=== PATIENT | male | born 1965 | race Caucasian/White ===

== ENCOUNTER 2017-05-13 15:17 | Emergency (ER) | payer OTHER ==
[~2017-05-13] VITALS: Ht 175.3 cm; Wt 68.0 kg
--- NOTE | ~2017-05-13 | EKG ---
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
[2017-05-13 15:19] VITALS: BP 176/83
[2017-05-13 15:48] LABS: URINE BILIRUBIN NEGATIVE (Negative); URINE BLOOD NEGATIVE (Negative); URINE COLOR YELLOW; URINE GLUCOSE-RANDOM* NEGATIVE (Negative); URINE KETONES NEGATIVE (Negative); URINE LEUKOCYTES-REFLEX NEGATIVE (Negative); URINE PROTEIN (DIPSTICK) NEGATIVE (Negative); URINE UROBILINOGEN 0.2 E.U./dl (0.2-1.0)
[2017-05-13 16:01] LABS: ABSOLUTE NEUTROPHILS 2.9 thou/uL (1.4-8.2); EOSINOPHILS 0.9 % (0.0-3.0); HEMATOCRIT 44.6 % (42.0-52.0); HEMOGLOBIN 15.3 gm/dL (14.0-18.0); LYMPHOCYTES 37.2 % (24.0-44.0); MCH 31.7 pg (26.0-34.0); MCHC 34.3 g/dL (28.0-37.0); MCV 92.7 fL (80.0-100.0); PLATELET COUNT 234 thou/uL (150-400); POLYS 51.9 % (36.0-66.0); RBC 4.82 mil/uL (4.50-6.00); RDW 13.6 % (10.5-14.5); WBC 5.6 thou/uL (4.0-11.0)
[2017-05-13 16:02] LABS: MANUAL DIFF NO
[2017-05-13 16:08] LABS: CALCIUM 9.7 mg/dL (8.5-10.1); CREATININE 0.9 mg/dL (0.7-1.3)
[2017-05-13 16:14] LABS: ALBUMIN 4.1 g/dL (3.4-5.0); TOTAL BILIRUBIN 0.7 mg/dL (<0.1-1.0); TOTAL PROTEIN 7.5 g/dL (6.4-8.2)
[2017-05-13] MEDS ORDERED: PHENERGAN 25 MG25 M1 PO (16:56)
[2017-05-13] MEDS ORDERED: ZANTAC 150MG T150 MG PO (16:56)
[2017-05-13] MEDS ORDERED: PRILOSEC 20 MG20 MG PO (16:56)
== END 2017-05-13 17:20 | disposition home or self-care (01) ==
LOC: ER 15:17
PROVIDERS: Physician Assistant
DX: R10.33 Periumbilical pain (principal); R10.13 Epigastric pain; F17.210 Nicotine dependence, cigarettes, uncomplicated; F10.99 Alcohol use, unspecified with unspecified alcohol-induced disorder

== ENCOUNTER 2019-02-04 19:41 | Emergency (ER) | payer OTHER ==
[~2019-02-04] VITALS: Ht 177.8 cm; Wt 70.3 kg
[~2019-02-04 19:41] MED LIST: PHENERGAN 25 MG25 M1 PO; PRILOSEC 20 MG20 MG PO; ZANTAC 150MG T150 MG PO
[2019-02-04 19:59] LABS: URINE BILIRUBIN NEGATIVE (Negative); URINE BLOOD NEGATIVE (Negative); URINE CLARITY CLEAR; URINE COLOR YELLOW; URINE GLUCOSE-RANDOM* NEGATIVE (Negative); URINE KETONES NEGATIVE (Negative); URINE LEUKOCYTES NEGATIVE (Negative); URINE NITRITE NEGATIVE (Negative); URINE PROTEIN (DIPSTICK) NEGATIVE (Negative); URINE UROBILINOGEN 0.2 E.U./dl (0.2-1.0)
[2019-02-04 20:11] LABS: BASOPHILS 0.9 % (0.0-2.0); EOSINOPHILS 1.2 % (0.0-3.0); HEMATOCRIT 42.5 % (42.0-52.0); HEMOGLOBIN 14.8 gm/dL (14.0-18.0); LYMPHOCYTES 33.2 % (24.0-44.0); MCH 31.2 pg (26.0-34.0); MCHC 34.9 g/dL (28.0-37.0); MCV 89.5 fL (80.0-100.0); MONOCYTES 7.6 % (1.0-8.0); PLATELET COUNT 242 thou/uL (150-400); POLYS 57.1 % (36.0-66.0); RBC 4.75 mil/uL (4.50-6.00); RDW 13.4 % (10.5-14.5); WBC 5.3 thou/uL (4.0-11.0)
[2019-02-04 20:20] LABS: CALCIUM 9.4 mg/dL (8.5-10.1); CREATININE 0.8 mg/dL (0.7-1.3)
[2019-02-04 20:27] LABS: TOTAL BILIRUBIN 0.6 mg/dL (<0.1-1.0); TOTAL PROTEIN 7.5 g/dL (6.4-8.2)
[2019-02-04] MEDS ORDERED: PRILOSEC 20 MG20 MG PO (21:16)
[2019-02-04 21:19] VITALS: BP 145/90
--- NOTE | 2019-02-07 08:31 | EKG ---
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1965 Requested By: Jose Patricia Order Number: [id number] MD: Tr Ravi Measurements Intervals [place] Rate: 64 P: 56 WI: 203 QRS: -59 QRSD: 94 T: 60 QT: 389 QTc: 402 Interpretive Statements Sinus rhythm Borderline prolonged [place] interval Probable left atrial enlargement Left axis deviation Abnormal R-wave progression, early transition Compared to ECG 05/13/2017 16:42:37 Left-axis deviation now present Sinus bradycardia no longer present Electronically Signed On 02-07-2019 8:31:15 CDT by Tr Ravi [email or web address] ��������������������������������������������� <ELECTRONICALLY SIGNED> ���������������������������������������� By: Tr Ravi MD ��������������������������������������������� 02/07/19 0831 34 34 Tr Ravi MD /EPI
== END 2019-02-04 21:26 | disposition home or self-care (01) ==
LOC: ER 19:41
PROVIDERS: Emergency Medicine
DX: R10.12 Left upper quadrant pain (principal); R07.89 Other chest pain; F17.210 Nicotine dependence, cigarettes, uncomplicated

== ENCOUNTER 2019-11-16 18:55 | Emergency (ER) | payer OTHER ==
[~2019-11-16] VITALS: Ht 175.3 cm; Wt 83.9 kg
[2019-11-16] MEDS ORDERED: NOHOMEMEDICATIONS (19:01)
[2019-11-16 19:52] LABS: HEMATOCRIT 42.6 % (42.0-52.0); HEMOGLOBIN 14.4 gm/dL (14.0-18.0); MCH 31.2 pg (26.0-34.0); MCHC 33.7 g/dL (28.0-37.0); MCV 92.6 fL (80.0-100.0); RBC 4.6 mil/uL (4.50-6.00); RDW 13.9 % (10.5-14.5); WBC 5.3 thou/uL (4.0-11.0)
[2019-11-16 20:01] LABS: CALCIUM 9.5 mg/dL (8.5-10.1); CREATININE 0.7 mg/dL (0.7-1.3)
[2019-11-16 20:04] LABS: PROTIME 10.2 Seconds (9.3-11.4)
[2019-11-16 23:52] VITALS: BP 144/73
== END 2019-11-16 23:53 | disposition short-term general hospital (02) ==
LOC: ER 18:55
PROVIDERS: Emergency Medicine Emergency Medical Services
DX: I70.202 Unspecified atherosclerosis of native arteries of extremities, left leg (principal); F17.210 Nicotine dependence, cigarettes, uncomplicated